=== PATIENT | male | born 1960 | race Caucasian/White ===

== ENCOUNTER 2016-11-14 09:17 | Emergency (ER) | payer BC ==
[2016-11-14 09:58] VITALS: TEMP 98.4; BMI 32.5
[2016-11-14] MEDS ORDERED: OXYCODONE HCL 5 MG TABLET PO ONE (11:24)
--- NOTE | 2016-11-14 11:26 | EDPRACDOC ---
- General Information Chief Complaint: Earache Stated Complaint: DIZZY/ PRESSURE IN EAR Time Seen by Provider: 11/14/16 11:15 Information Source: Patient Home Medications: Home Medications Bp Med 11/14/16 Ciprofloxacin HCl [Cipro] 500 mg PO BID #20 tab 11/14/16 Neomy Sulf/Polymyx B Sulf/Hc [Cortisporin Ear Solution] 10 ml Q4 10 Days Oxycodone Immediate Release [Oxycodone Immediate Release (OxyIR)] 5 mg PO Q4H PRN #20 tab 11/14/16 Allergies/Adverse Reactions: Allergies Allergy/AdvReac Type Severity Reaction Status Date / Time No Known Allergies Allergy Verified 11/14/16 11:00 - History of Present Illness Onset: YESTERDAY HPI: PT PRESENTS TO ED WITH ONSET OF LEFT EARACHE THAT STARTED LAST NIGHT WITH SHARP PAIN AND SINCE HAS STARTED TO HAVE DECREASED HEARING ON LEFT. Location: left ear Context: Reports: Spontaneous Onset Recently Treated Ear Infection: Reports: No Pain Severity: Reports: Moderate Associated Signs & Symptoms: Reports: Other (DECREASE HEARING) ED Past Medical History - History Reviewed Yes Nurses notes reviewed and agree except as marked Travel Outside of [place] in the Last 3 Months?: No - Patient Medical History Cardiac History: Reports: Hypertension, Hypercholesterolemia Psychological History: Denies: Depression - Social Medical History Smoking Status: Light tobacco smoker (less than 5/day) ETOH: None Substance Abuse: None Lives With: Spouse Lives In: Home EDM Review of Systems - Review of Systems ROS Negative Except as Marked: Yes All systems reviewed and were negative except as marked Constitutional: No Symptoms Reported. negative: Fever, Chills, Weakness, Fatigue, Loss of Appetite Eyes: No Symptoms Reported. negative: Redness, Blurred Vision, Double Vision, Discharge, Pain, Light Sensitive, Photophobia Ears: Hearing Loss (LT), Pain (T). negative: Drainage, Ear Pulling Throat: No Symptoms Reported. negative: Pain, Swelling Nose: No Symptoms Reported. negative: Congestion, Bleeding, Discharge, Injection, Swelling, Deformity, Ecchymosis, Tender, Abrasion, Laceration Mouth: No Symptoms Reported. negative: Pain, Drooling Respiratory: No Symptoms Reported. negative: Cough, Brassy Cough, Barky Cough, Shortness of Breath, Wheezing, Hemoptysis Cardiovascular: No Symptoms Reported. negative: Chest Pain, Palpitations, Syncope, Edema, Orthopnea, PND, Skin Mottling, Cyanosis Gastrointestinal: No Symptoms Reported. negative: Pain, Constipation, Nausea, Vomiting, Diarrhea, Melena, Formula Intolerance Genitourinary: No Symptoms Reported. negative: Dysuria, Hematuria, Frequency, Discharge, Bleeding, Testicular Pain, Neurological: No Symptoms Reported. negative: Headache, Dizziness, Seizure, Numbness, Weakness, Speech Difficulty, Gait Difficulty Musculoskeletal: No Symptoms Reported. negative: Neck, Chestwall, Ribs, Back, Shoulder, Arm, Elbow, Forearm, Wrist, Hand, Pelvis, Hip, Femur, Knee, Leg, Ankle , Foot Integumentary: No Symptoms Reported. negative: Itching, Rash, Bruising, Wound Allergic/Immunologic: No Symptoms Reported. negative: Hives, Itching Hematologic: No Symptoms Reported. negative: Lymphadenopathy, Easy Bruising, Easy Bleeding Endocrine: No Symptoms Reported. negative: Weight Gain, Weight Loss Psychiatric: No Symptoms Reported. negative: Anxiety, Depression, Hallucinations, Insomnia, Suicidal - Physical Exam Constitutional: No apparent distress, Alert (Awake) Oriented to: Time, Person, Place Last recorded Vital Signs: Last Vital Signs Temp 98.4 F 11/14/16 09:55 Pulse 83 11/14/16 09:55 Resp 18 11/14/16 09:55 BP 149/80 11/14/16 09:55 Pulse Ox 96 11/14/16 09:55 Oxygen Pulse Oxygen Saturation 96 O2 Device Room Air Oxygen Flow Rate Fraction of Inspired Oxygen ( FIO2) - HEENT Head: Other (MILD TENDERNESS POSTERIOR LEFT EAR) Eye Exam: Normal (PERRL, EOMI, Sclera white) Oropharynx: Normal (Pharynx:Moist without exudate,Gums-no swelling) Tympanic Membrane: Dull, Perforated, Redness, Other (SMALL AMOUNT BLOOD IN CANAL AND AROUND TM) ENT EAC: Blood (SMALL AMT) TMJ: Normal Nose: No Symptoms Reported (septum midline) Neck: Normal (FROM, trachea at midline) - Respiratory/Cardiovascular Respiratory: Normal - CTA (BBS clear to auscultation without adventitious sounds ) Cardiovascular: Normal (RRR without murmur, gallop or rub) - GI Auscultation: Normal (NABS) Palpation: Normal (Soft,No rebound or guarding, non distended) Tenderness: Non tender Bowser's Sign: Negative - Musculoskeletal Back: Normal (Non-Tender) Extremities: Normal (Normal tone, Pulses 2+ No cyanosis or edema, FROM) - Integumentary Skin: Normal, Warm, Dry Lymphatics: Normal (no adenopathy) - Neurologic Memory Impaired: Normal Motor Function: Normal (Normal tone, Pulses 2+ No cyanosis or edema, FROM) Cranial Nerve: Normal (CN II-X11 intact sensation, strength 5/5) Cerebellar: Normal Mood Description: Normal Perception: Normal - Differential Diagnosis Otitis Media, Perforation Decision Time to Discharge: 11:30 - Departure Disposition: Home Condition: Stable Final Diagnosis: Acute otitis media, Perforation of tympanic membrane Instructions: Ruptured Eardrum (ED), Otitis Media (ED) Education/Counseling Given To: Patient Education/Counseling Given Regarding: Diagnosis, Treatment, Prognosis, Follow Up Referrals: None,No Provider [Primary Care Provider] - One Week Kenneth Leon DO [Staff Physician] - One Week Prescriptions: Ciprofloxacin HCl [Cipro] 500 mg PO BID #20 tab Neomy Sulf/Polymyx B Sulf/Hc [Cortisporin Ear Solution] 10 ml Q4 10 Days Oxycodone Immediate Release [Oxycodone Immediate Release (OxyIR)] 5 mg PO Q4H PRN #20 tab PRN Reason: Pain
[2016-11-14 11:47] VITALS: BP 154/84; PULSE 89
== END 2016-11-14 11:42 | disposition home or self-care (01) ==
LOC: ED 09:17 → EDMC 11:42
DX: H66.90 Otitis media, unspecified, unspecified ear (principal); H72.90 Unspecified perforation of tympanic membrane, unspecified ear
CPT/HCPCS: 99282; J3490